=== PATIENT | female | born 1945 | race Caucasian/White ===

== ENCOUNTER 2025-04-11 09:22 | Emergency (ER) | payer SELFPAY ==
[2025-04-11] MEDS: Tetracaine HCl/PF 0.5% 4 ML Bottle EYEBOTH ONE (10:19)
== END 2025-04-11 10:47 | disposition home or self-care (01) ==
LOC: MERGE 09:22 → MW.ED 09:22
DX: S05.02XA Injury of conjunctiva and corneal abrasion without foreign body, left eye, initial encounter (principal); H11.32 Conjunctival hemorrhage, left eye; Z75.3 Unavailability and inaccessibility of health-care facilities; X58.XXXA Exposure to other specified factors, initial encounter
CPT/HCPCS: 99283; A9270; J3490